=== PATIENT | female | born 1960 | race Caucasian/White ===

== ENCOUNTER 2024-11-06 03:29 | Inpatient (IN) | payer MEDICARE, OTHER, SELFPAY ==
[2024-11-05 23:30] VITALS: BP 162/81
[2024-11-06] VITALS (20 sets, daily range): BP systolic 122–173; BP diastolic 60–96; BMI 17.5; BMI 18.5
--- NOTE | 2024-11-06 00:17 | EDRN ---
Pt with intermittent epigastric abdominal pain x 9 months. Pt notes it happens most often after she eats, does not associate it with certain types of foods stating she eats a mild diet because she has IBS. Pt says she gets the pain, goes to an ER
to get pain medication and that nothing is ever found. Pt was at [facility] Friday night, had a CT and was given an enema. Pt had BM in ED. Pt given laxative to take on Friday and then had another BM on Friday. Pt feels bloated. Last vomited
Friday. Pt with chills. No cp, sob, fever/cough, urinary symptoms, diarrhea. P ain sometimes goes into her back.
[2024-11-06 00:30] LABS: % Basophils 0.4 % (0-2); % Immature Granulocytes 0.4 % (0-0.5); % Lymphocytes 24.2 % (20.5-51.1); % Monocytes 10.3 % (1.7-9.3); % Neutrophils 63.7 % (42.2-75.2); Absolute Eosinophils 0.1 10^3/uL (0-0.7); Absolute Lymphocytes 1.9 10^3/uL (1.2-3.4); Absolute Monocytes 0.8 10^3/uL (0.1-0.6); Absolute Neutrophils 5.1 10^3/uL (1.4-6.5); Hematocrit 39.4 % (37.0-47.0); Hemoglobin 13.7 g/dL (12.0-16.0); Mean Corp Hgb Conc. 34.8 g/dL (33.0-37.0); Mean Corpuscular Hgb 30.2 pg (27.0-31.0); Mean Platelet Volume 9.7 fL (7.4-10.4); Nucleated Red Blood Cells % 0 %; Platelet Count 190 10^3/uL (130-400); Red Blood Cell Count 4.53 10^6/uL (4.20-5.40)
[2024-11-06 00:42] LABS: ALT (SGPT) 327 U/L (0-35); AST (SGOT) 504 U/L (14-36); Alkaline Phosphatase 68 U/L (38-126); Blood Urea Nitrogen 17 mg/dl (7-17); Calcium 9.5 mg/dl (8.4-10.2); Carbon Dioxide 26 mmol/L (22-30); Chloride 100 mmol/L (98-107); Glucose 118 mg/dl (70-99); Lipase 180 U/L (23-300); Potassium 3.8 mmol/L (3.5-5.1); Sodium 135 mmol/L (135-145); Total Bilirubin 1.2 mg/dl (0.2-1.3); Total Protein 6.6 g/dl (6.3-8.2); eGFR > 60.00
--- NOTE | 2024-11-06 01:18 | ED.GENMED ---
History of Present Illness
General
Chief Complaint: Abdominal Pain
Source: patient
Exam Limitations: none
Time Seen by Provider: 11/05/24 23:57
Nursing documentation reviewed up to this point in time: agreed with
History of Present Illness
History of Present Illness:
64-year-old female with history of IBS and GERD presents to the ER for evaluation of abdominal pain. Patient reports that she has had intermittent abdominal pain for months but over the past week symptoms have been more consistent. She reports a
constant epigastric aching radiates towards the right side. She says her pain becomes much more severe with meals. She reports associated nausea and vomiting. She denies any diarrhea; she has chronic constipation. She denies any urinary
symptoms. Denies fevers or chills. She says she was seen a few days ago at an outside hospital and had CT scan which was nondiagnostic and was ultimately discharged. She had prior surgery for bladder mesh but no other prior abdominal surgeries.
Review of Systems
Review of Systems
All Other Systems: ROS reviewed and negative except as documented in HPI and ROS
Constitutional: Denies fever or chills
Respiratory: Denies trouble breathing
Cardiac: Denies chest pain
ABD/GI: Reports abdominal pain, nausea, vomiting and constipated; Denies diarrhea
: Denies dysuria, frequency or flank pain
Musculoskeletal: Denies neck pain or back pain
Neurological: Denies dizzy or headache
Phy Exam
Physical Exam
Physical Exam:
General: Awake, alert, oriented x3; no acute distress
Head: Normocephalic, atraumatic
Eyes: Conjunctiva normal, sclera anicteric
Throat: Airway intact, handling secretions
Neck: Trachea midline
Lungs: Clear to auscultation bilaterally, no wheezing, rales, rhonchi
Heart: Regular rate and rhythm, no murmurs, gallops, or rubs
Abd: Soft, non distended, mildly tender right upper quadrant
Back: No CVA tenderness
Neuro: No gross deficits
Skin: no rash in area of concern
Extremities: No edema in extremities, equal pulses in all extremities
Scores
Heart Failure Risk
Heart Failure Risk Score: Not Applicable
Heart Score for Chest Pain Patients
STEMI patient?: Not applicable
Withdrawal Assessment of Alcohol
Withdrawal Assessment Completed?: Not applicable
Course
Orders/Labs/Results
Orders:
Orders
11/05/24 23:41
Electrocardiogram (*1) Urgent
Reason for Study: Abdominal Pain
EKG- Treatment ONCE
IV Insert/Care/Rem.- Treatment PRN
Complete Blood Count/With Diff Urgent
Comprehensive Metabolic Panel Urgent
Lipase Urgent
Urinalysis Reflex To Culture Urgent
Date Specimen was Collected: 11/05/24
Time Specimen was Collected: 23:41
11/06/24 00:04
US Abdomen Complete/Upper Urgent
Comment:
Reason For Exam: right sided abd pain, N/V
Abnormal Lab Results
11/06/24
00:13
Absolute Monos (auto) 0.8 H 10^3/uL
(0.1-0.6)
Monocytes % 10.3 H %
(1.7-9.3)
Glucose 118 H mg/dl
(70-99)
AST 504 H* U/L
(14-36)
ALT 327 H U/L
(0-35)
11/06/24 00:13
11/06/24 00:13
Vital Signs
Initial and Last Documented VS:
Initial Vital Signs
Temp Pulse Resp BP Pulse Ox
36.8 C 70 20 162/81 98
11/05/24 23:30 11/05/24 23:30 11/05/24 23:30 11/05/24 23:30 11/05/24 23:30
Last Documented Vital Signs
Temp Pulse Resp BP Pulse Ox
36.8 C 70 20 162/81 98
11/05/24 23:30 11/05/24 23:30 11/05/24 23:30 11/05/24 23:30 11/05/24 23:30
MDM/Problems Addressed
Differential Diagnosis Includes:
Cholelithiasis/choledocholithiasis/cholecystitis, enteritis, GERD/gastritis, PUD, appendicitis less likely
MDM/Problems Addressed:
64-year-old female presents for evaluation of abdominal pain worse after meals associated with nausea and vomiting. Intermittent for months but more consistent over the past week. Reportedly nondiagnostic CT scan a few days ago at outside
hospital�unfortunately report is not available for review. Hypertensive otherwise normal vitals. Physical exam as above. Will place an IV check labs including a CBC and a CMP, lipase. Check urinalysis. Check upper abdominal ultrasound.
Reassess after the above.
Labs reviewed: CBC shows no leukocytosis or any other clinically significant abnormalities. Her CMP shows transaminitis with AST and ALT 504/327. T. bili normal. Lipase normal. Upper abdominal ultrasound shows multiple mobile gallstones and
dilated CBD but no signs of cholecystitis. Suspect choledocholithiasis. She has nothing to suggest cholecystitis or cholangitis at this point�no fever, no leukocytosis. Hold on antibiotics. Will admit for continued management. Discussed with
hospitalist.
*Radiology
Radiology exam reviewed: radiology read reviewed
*Pulse Oximetry
Patient hypoxic: no
*Critical Care Note
Total Time (30-74mins, 75-104mins- exclusive of procedures): Not Applicable
Data Reviewed
Source: patient and family (Daughter)
Patient Management
Discussion with other providers: Hospitalist (Discussed with hospitalist)
Escalation/DeEscalation of care consider admission/obs:
Admission indicated
ED Attending Note
-
Portions of this chart may have been created with voice recognition software.� Occasional wrong word or��sound alike� substitutions may have occurred due to the inherent limitations of voice recognition software.
Discharge Plan
Departure
Patient Disposition: Admit
Date of Disposition: 11/06/24
Time of Disposition: 01:17
Admit to doctor: Kaushal
Presentation/result/management discussed w/ accepting MD/DO: Hospitalist
Discharge Problem:
Choledocholithiasis
Prescriptions:
No Action
trazodone 100 mg Tablet
100 mg PO DAILY
duloxetine [Cymbalta] 60 mg Capsule,Delayed Release(Dr/Ec)
60 mg PO DAILY
Referrals:
UNKNOWN - PT DOES,NOT KNOW [Family Provider] -
Interventions
Interventions:
*Risk Screen - Suicide Last Done: 11/05/24 23:30
*General Assessment Last Done: 11/05/24 23:30
*Neglect/Abuse Screening Last Done: 11/05/24 23:30
*ED- Fall Risk Assessment Last Done: 11/05/24 23:30
*ED COVID-19 Vaccine History Last Done: 11/05/24 23:30
LL-Kbsits-Cfysrltajr Assessment Last Done: 11/06/24 00:15
Discharge Date and Time
Print Language: URUGUAYAN
[2024-11-06 01:43] LABS: Urine Albumin Negative (Neg - Trace); Urine Bilirubin Negative (Negative); Urine Character Clear (Clear); Urine Color Yellow; Urine Glucose Negative (Negative); Urine Ketone Negative (Negative); Urine Leukocyte Negative (Negative); Urine Nitrite Negative (Negative); Urine Occult Blood 1+ (Negative); Urine Urobilinogen Negative (Neg - 1+)
[2024-11-06 02:16] LABS: Urine Bacteria Few (Negative); Urine White Cell 0-2 /HPF (0-5)
--- NOTE | 2024-11-06 03:05 | HPS.HSE ---
Family Physician
-
Family Physician: NOT KNOW UNKNOWN - PT DOES
Chief Complaint
-
Abd pain
History of Present Illness
Patient is a 64y F with PMH significant for IBS and anxiety who presents to ED complaining of abdominal pain. Patient reports intermittent symptoms of abdominal pain and N/V that started about 8 months ago. She has had multiple episodes since
that time - typically occurring after evening meals. She had an episode Friday and presented to an outside ED where LFTs were abnormal and CT imaging was unremarkable. She had similar symptoms again this evening and presented to the ED here.
Medical History
Past Medical History
Past Medical History: Reports Other
Additional Past Medical History:
IBS-C
Anxiety / Depression
Osteoporosis
Past Surgical History: Reports Other
Additional Past Surgical History:
R Wrist Surgery
T&A
Bladder Sling
Social History
Tobacco: Former Smoker (Quit smoking 10 years ago.)
Alcohol: None
Drug: None
Family History
Family History: Other (Mother: GB disease, IBS Father: CAD)
Allergies / Home Medications
Allergies reflects when Allergies were last updated in [facility].
Home Medications with original date entered in [facility]
Allergy/Medication List:
Allergies
Allergy/AdvReac Type Severity Reaction Status Date / Time
Penicillins Allergy Hives Verified 11/05/24 23:39
Home Medications
duloxetine 60 mg capsule,delayed release (Cymbalta) 60 mg PO DAILY 11/05/24
trazodone 100 mg tablet 100 mg PO DAILY 11/05/24
Review of Systems
-
History Source: Patient
A 12 point ROS was completed and negative except as noted: Yes
Constitutional: Denies Fever or Chills
EENT: Denies Sore Throat
Respiratory: Denies Cough or Trouble Breathing
Cardiac: Denies Chest Pain or Palpitations
Abdomen/GI: Reports Abdominal Pain, Nausea, Vomiting and Constipated (chronic); Denies Diarrhea or Bloody Stools
: Denies Dysuria or Frequency
Musculoskeletal: Denies Joint Pain or Edema
Neurological: Denies Dizzy or Headache
Psych: Denies Depression or Anxiety
Physical Exam
Vital Signs
Vital Signs
Temp Pulse Resp BP Pulse Ox
98.2 F 58 18 155/88 98
11/05/24 23:30 11/06/24 02:00 11/06/24 02:00 11/06/24 02:00 11/05/24 23:30
Physical Exam
General: Other (64y F in no acute distress.)
HEENT: Moist mucous membranes and PERRLA
Respiratory: Clear; No Wheezes, Rales or Rhonchi
Cardiac: S1/S2, Regular Rhythm and Murmur (diastolic murmur.)
GI: Soft, Non Distended, Normal Bowel Sounds and Other (RUQ tendernes without rebound / guarding.)
Musculoskeletal: No Clubbing, No Cyanosis and No Edema
Neuro: AO x 3
Laboratory Results
-
11/06/24 00:13
11/06/24 00:13
Laboratory Results
Total Bilirubin 1.2 mg/dl (0.2-1.3) 11/06/24 00:13
AST 504 U/L (14-36) H* 11/06/24 00:13
ALT 327 U/L (0-35) H 11/06/24 00:13
Alkaline Phosphatase 68 U/L (38-126) 11/06/24 00:13
Lipase 180 U/L (23-300) 11/06/24 00:13
Impression/Plan
-
A/P: Patient is a 64y F with PMH significant for IBS who presents to ED complaining of abdominal pain and N/V.
Symptomatic Cholelithiasis
Mildly Dilated CBD
- Admit for further evaluation and treatment.
- Symptoms / history sound c/w biliary colic with postprandial pain and N/V.
- Stones appreciated on US.
- LFTs with abnormal AST / ALT - but unremarkable bili and alk phos.
- GI and Surgery evaluations for additional recommendations.
- Supportive care, pain control, antiemetics for now.
Anxiety / Depression
- Stable. Continue home medications.
DVT Prophylaxis: SCDs
Code Status: Full
[2024-11-06] MEDS: TORADOL 10 MG IV ×2 (03:23→09:45)
[2024-11-06] MEDS: LR 1000 IV ×2 (05:06→22:54)
[2024-11-06] MEDS: TYLENOL 650 MG PO (05:06)
[2024-11-06 08:20] LABS: Hematocrit 37.7 % (37.0-47.0); Hemoglobin 13.2 g/dL (12.0-16.0); Mean Corpuscular Hgb 30.3 pg (27.0-31.0); Mean Corpuscular Volume 86.7 fL (81.0-99.0); Mean Platelet Volume 10.1 fL (7.4-10.4); Platelet Count 195 10^3/uL (130-400); Red Blood Cell Count 4.35 10^6/uL (4.20-5.40); Red Cell Dist. Width 11.9 % (11.5-14.5); White Blood Cell Count 5.8 10^3/uL (4.8-10.8)
--- NOTE | 2024-11-06 08:39 | W.PN.HOSP.TC ---
Addendum entered and electronically signed by Kahlil Palma MD 11/06/24 15:36:
Seen and examined by me independently in collaboration with the medical claims manager.
Lab data and imaging data reviewed.
Addendum as below :
Patient presents with 8 months of GI symptoms. She has history of IBS. She had recurrent admissions to the hospital with GI complaints. This time she presented with abdominal pain. She does have right upper quadrant tenderness. Evaluation so
far reveals gallstones but no cholecystitis based on ultrasound but she is tender in the right upper quadrant. There is also CBD dilatation without cholestasis. There is a transaminitis which apparently was noted in the recent blood work per
patient. Urine without any bilirubin.
Reviewed by surgery who plans to take her to the OR today for lap cholecystectomy. There is also plan for intraoperative cholangiogram and if it does not show obstruction or stone and if transaminitis does not improve would need an MRI of the
abdomen and evaluation for hepatocellular disease.
Discussed case with surgery as well as GI.
Total time spent on today's encounter was 52 minutes which included time spent in counseling the patient/family regarding diagnosis and treatment plan as listed above, goals of care, and symptom management. Case was discussed with nursing staff,
specialists, and care coordinators/case management. All labs and imaging personally reviewed by me. Remainder the time spent in detailed review of previous records, lab data, imaging, and other medical provider documentation.
Original Note:
Today's Communication/Plan
-
Plan for cholecystectomy with IOC today
GI and surgery on board
Assessment / Plan
Assessment / Plan
64 y/o female with pmhx significant for IBS-C and anxiety presenting to the ED with chronic colicky abdominal pain and nausea/vomiting
# Cholelithiasis and CBD dilation
- Abd US showing cholelithiasis, with numerous small mobile gallstones, no sonographic evidence of acute cholecystitis, common bile duct demonstrates mild dilatation 8.2 mm, tapering distally.
- LFTs elevated, T Bili and Alk Phos normal, urine urobilinogen neg - no cholestatic pattern. WBC normal. No fever detected.
- Patient notes history of elevated LFTs last year
- History consistent with biliary colic. Pain worse after meals
- GI and surgery on board, plan for cholecystectomy with IOC
- Remains NPO, on LR 80 ml/hr
- If LFTs remain elevated post surgery, will need an MRCP to evaluate further
- Pain management, current pain 11/13, epigastric
- Continue Protonix
# Ureteral dilation, possible
- Incidental finding on abd US, extrarenal pelvis/mildly dilated ureter on the left side
- Not symptomatic, no history of nephrolithiasis
- U/A: RBC 7-10, OB +
- Outpt f/u
# IBS-C
- Continued outpatient follow-up with her established GI doctor, Dr. Christine Valle
- Last cologuard neg (~10 yrs ago)
- Last BM 11/03
# Anxiety
- Continue home meds
DVT prophylaxis SCDs
Full code
Anticipated Discharge: 24 - 48 hours
Subjective/Interval History
-
Date of Service: November 06, 2024
Objective Data
-
Labs:
Laboratory Results
11/06/24 11/06/24
00:13 05:56
WBC 8.0 5.8
Hgb 13.7 13.2
Hct 39.4 37.7
Plt Count 190 195
Sodium 135 Pending
Potassium 3.8 Pending
Chloride 100 Pending
Carbon Dioxide 26 Pending
BUN 17 Pending
Creatinine 0.8 Pending
Glucose 118 H Pending
Calcium 9.5 Pending
Total Bilirubin 1.2 Pending
AST 504 H* Pending
ALT 327 H Pending
Alkaline Phosphatase 68 Pending
Vital Signs:
Vital Signs
Temp Pulse Resp BP Pulse Ox
98.3 F 58 18 144/75 99
11/06/24 07:35 11/06/24 07:35 11/06/24 07:35 11/06/24 07:35 11/06/24 07:35
Review of Systems
-
History Source: Patient
Constitutional: Reports Chills
EENT: Reports No Symptoms Reported
Respiratory: Reports No Symptoms
Cardiac: Reports No Symptoms
Abdomen/GI: Reports Abdominal Pain, Nausea, Vomiting and Constipated; Denies GERD
Genitourinary: Reports No Symptoms
Musculoskeletal: Reports No Symptoms
Skin: Reports No Symptoms
Neuro: Reports No Symptoms
Endocrine: Reports No Symptoms
Hematologic / Lymphatic: Reports No Symptoms
Allergy / Immunology: Reports No Symptoms
Physical Exam
-
General: Well Developed, Well Nourished, No Apparent Distress, Comfortable and Conversant
HEENT: Normocephalic
Respiratory: Clear to Auscultation
Cardiac: Regular Rhythm and S1/S2
GI: Soft, Nondistended, Normal Bowel Sounds and Tender (Epigastric tenderness without rebound/guarding)
Genito-urinary: No Costovertebral Tender
Musculoskeletal: No Clubbing, No Cyanosis and No Edema
Skin: Warm
Neuro: Awake, Alert, Oriented and AO x 3
Psych: Calm
[2024-11-06 08:59] LABS: ALT (SGPT) 316 U/L (0-35); AST (SGOT) 324 U/L (14-36); Albumin 3.8 g/dl (3.5-5.0); Alkaline Phosphatase 64 U/L (38-126); Blood Urea Nitrogen 14 mg/dl (7-17); Calcium 9.1 mg/dl (8.4-10.2); Carbon Dioxide 27 mmol/L (22-30); Chloride 101 mmol/L (98-107); Direct Bilirubin 0.2 mg/dl (0.0-0.4); Estimated Creatinine Clearance 52 ml/min; Glucose 90 mg/dl (70-99); Potassium 3.7 mmol/L (3.5-5.1); Sodium 136 mmol/L (135-145); Total Bilirubin 1.1 mg/dl (0.2-1.3); Total Protein 6.3 g/dl (6.3-8.2); eGFR > 60.00
--- NOTE | 2024-11-06 09:04 | CON.GI ---
Addendum entered and electronically signed by Marry Hobson DO 11/06/24 18:27:
patient's IOC was negative for filling defects so ERCP needed.
GI will sign off, please call with any questions.
Addendum entered and electronically signed by Marry Hobson DO 11/06/24 14:50:
Patient seen examined independently of the physicians baking assistant. I agree with her note with additions below
Beth is a 64-year-old female followed by [facility] for her IBS constipation with Dr. Valle, anxiety and osteoporosis who comes in with intermittent biliary colic with epigastric abdominal pain without radiation that occurs after dinner that
prevents her from sleeping with multiple episodes of ER visits. Along with the pain she does have nausea and vomiting. Ultrasound shows multiple gallstones with a mildly dilated common bile duct 8.2 mm. On exam she is tender in the epigastric
area. Liver enzymes show a total bilirubin of 1.2, AST of 504, ALT of 327, alkaline phosphatase of 68 with no evidence of pancreatitis with a normal lipase. No leukocytosis. Patient is not on a PPI and has never had an upper endoscopy
Due to her biliary colic general surgery is planning for a cholecystectomy and will do an IOC at that time. They will let us know if the IOC is positive requiring an ERCP
Original Note:
Consultation
-
Date/Time Consultation Requested: 11/06/24441
Date/Time Consultation Performed: 11/06/24 4529
Requesting Provider: Dr Easley
Performing Provider: Dr Hobson / Shante Champion PA-C
Reason for Consultation: abdominal pain, gallstones
Medical History
Chief Complaint / HPI
Chief Complaint: abdominal pain
History of Present Illness:
Beth is a 64 year old female with a past medical history of IBS-C, anxiety and osteoporosis who presented to the ED with epigastric abdominal pain, which had been going on intermittently for the past 8-9 months. The pain would typically come on in
the evenings after eating, occurring every 6 weeks or so. She states earlier this week she went to the ER at [facility] for similar pain, had workup that included labs (reportedly showed abnormal LFTs) and abdominal CT that was normal and was
discharged. She returned to the ER when the pain returned last night. She c/o associated nausea, vomiting and chills. Vomit appeared brown to her, but she denies coffee grounds emesis or hematemesis. No heartburn, reflux or dysphagia. Patient
afebrile. US of the abdomen demonstrates multiple gallstones with mildly dilated CBD (8.2mm) with no evidence of acute cholecystitis. Labs show LFTs as follows: total bilirubin 1.2, AST 504, ALT 327, alk phos 68. Lipase 180. WBC count 8.0 and Hgb
13.7.
Patient is established with GI, Dr. Christine Valle. She does have significant issues with her chronic constipation, states she has tried multiple agents without improvement, was just started on Amitiza last week but felt nauseous so stopped it. She
had a colonoscopy about 10 years ago, has never had an endoscopy. No family history of any GI malignancies. She notes her mother had gallbladder issues.
Past Medical History
Past Medical History: Other (IBS-C, anxiety, osteoporosis)
Past Surgical History: Other (R wrist, bladder sling)
Social History
Tobacco: Former Smoker
Alcohol: None
Drug: None and Other (denies NSAID use)
Living: Alone
Family History
Family History: Other (no family history of GI cancers)
Allergies / Home Medications
Allergy/AdvReac Type Severity Reaction Status Date / Time
Penicillins Allergy Hives Verified 11/05/24 23:39
�Medication �Instructions �Recorded
duloxetine 60 mg capsule,delayed 60 mg PO DAILY 11/05/24
release (Cymbalta)
trazodone 100 mg tablet 100 mg PO DAILY 11/05/24
Review of Systems
-
History Source: Patient
All other systems: A 12 pt ROS was Negative except as stated above in HPI
Vital Signs
Temp Pulse Resp BP Pulse Ox
98.3 F 58 18 144/75 99
11/06/24 07:35 11/06/24 07:35 11/06/24 07:35 11/06/24 07:35 11/06/24 07:35
Physical Exam
Exam
General: Well Developed, Well Nourished and No Apparent Distress
Respiratory: Clear
Cardiac: Regular Rhythm
GI: Soft, Non Distended, Normal Bowel Sounds and Tender (+mild epigastric tenderness)
Skin: Warm and Dry
Neuro: AO x 3
Psych: Calm
Results
WBC 5.8 10^3/uL (4.8-10.8) 11/06/24 05:56
Hgb 13.2 g/dL (12.0-16.0) 11/06/24 05:56
Hct 37.7 % (37.0-47.0) 11/06/24 05:56
MCV 86.7 fL (81.0-99.0) 11/06/24 05:56
Plt Count 195 10^3/uL (130-400) 11/06/24 05:56
Absolute Neuts (auto) 5.1 10^3/uL (1.4-6.5) 11/06/24 00:13
Sodium 136 mmol/L (135-145) 11/06/24 05:56
Potassium 3.7 mmol/L (3.5-5.1) 11/06/24 05:56
Chloride 101 mmol/L (98-107) 11/06/24 05:56
Carbon Dioxide 27 mmol/L (22-30) 11/06/24 05:56
BUN 14 mg/dl (7-17) 11/06/24 05:56
Creatinine 0.8 mg/dL (0.6-1.0) 11/06/24 05:56
Calcium 9.1 mg/dl (8.4-10.2) 11/06/24 05:56
Total Bilirubin 1.1 mg/dl (0.2-1.3) 11/06/24 05:56
AST 324 U/L (14-36) H 11/06/24 05:56
ALT 316 U/L (0-35) H 11/06/24 05:56
Alkaline Phosphatase 64 U/L (38-126) 11/06/24 05:56
Lipase 180 U/L (23-300) 11/06/24 00:13
Diagnostic Image Results:
US Abdomen: 11/06/24
-Cholelithiasis, with numerous small mobile gallstones. No sonographic evidence of acute cholecystitis.
-Common bile duct demonstrates mild dilatation 8.2 mm, tapering distally. Correlate with liver function tests. If indicated, consider follow-up nonemergent MRCP.
-Left extrarenal pelvis versus slightly distended proximal ureter; left ureteral jet visualized in the urinary bladder. Correlate with any left flank pain.
Prior GI Procedures:
EGD: never
Colonoscopy: 10 years ago per patient
Assessment / Plan
-
64 year old female with IBS-C with an 8-9 month history of intermittent epigastric abdominal pain with nausea/vomiting that occurs post-prandially, with US findings of multiple gallstones and a mildly dilated CBD and labs showing elevated AST, ALT
(504, 327) with normal T bili (1.2). She has had multiple ER visits for the same pain, states she was just at [facility] last week with reportedly normal CT. US did not show acute cholecystitis. Surgery has also been consulted.
IMPRESSION / PLAN:
Abdominal Pain (epigastric), cholelithiasis
- symptoms suggestive of biliary colic
- mildly elevated CBD on US, raising concern for possible choledocholithiais, although LFTs showing normal bilirubin with elevated AST/ALT
- per Surgery, plan for cholecystectomy today with IOC
- if choledocholithiasis appreciated on IOC, proceed to ERCP
- trend LFTs
- Consider MRI/MRCP with further liver workup if LFTs remain elevated
IBS- C
- continued outpatient follow-up with her established GI
We will follow.
-
-
Thank you for consultation and allowing me to participate in the patient's care. Please call the teacher of family and consumer science GI physician during the after hours with any questions or concerns.
[2024-11-06] MEDS: PROTONIX IV 40 MG IV (09:31)
[2024-11-06] MEDS: NSS (PRESERVATIVE FREE) 10 ML IV (09:31)
--- NOTE | 2024-11-06 12:05 | CON.GS ---
Addendum entered and electronically signed by Eduardo Rao MD 11/06/24 14:19:
I saw and examined the patient.
The Campaign Management Senior Manager's note was reviewed and I agree with the note.
Comment: Pt seen and evaluated at bedside. Pain improved. Imaging with gallstones stones and elevated liver enzymes. Prefers to proceed with lap le with cholang today. Advised if ductal stones found she may need to stay for ERCP. Informed
consent obtained. OCTOR
Original Note:
Consultation
-
Date/Time Consultation Performed: 11/06/24 8887
Medical History
-
Chief Complaint: Epigastric pain
History of Present Illness:
Ms Jaimes is a 64 yo female with a H/O IBS-C, SIBO tx previously with rifaximin and prior bladder sling who presents through the ED with recurrent epigastric pain. She normally receives her care at [facility] and follows with GI there and
notes that she has presented through their ED 4 times over the last 9 months with this pain. She has followed with her GI with outpatient abdominal MRI done in work up and reports she was told she had a hepatic cyst on that image. She describes the
pain as severe and usually occurring in the evening after dinner. She does have an element of chronic abdominal discomfort intermittently to the lower abdomen with her IBS-C which resolves with passing a stool. She notes irregular BM's that are
often as much as 10 days apart but denies acholic stools or dark urine. She reports associated nausea and vomiting with chills with this episode. She notes chills but denies fevers. This morning, she notes that the pain and nausea have improved
although there is mild epigastric discomfort and tenderness present.
Past Medical History
Past Medical History: Other (IBS-C, SIBO)
Past Surgical History: Orthopedic (Right wrist), Tonsilectomy and Urological (bladder sling)
Social History
Tobacco: Former Smoker
Alcohol: None
Drug: None
Living: Alone
Family History
Family History: Other (Mother and GM with gallbladder dz)
Allergies / Home Medications
Allergy/AdvReac Type Severity Reaction Status Date / Time
Penicillins Allergy Hives Verified 11/05/24 23:39
�Medication �Instructions �Recorded �Confirmed �Type
duloxetine 60 mg capsule,delayed 60 mg PO DAILY 11/05/24 11/05/24 History
release (Cymbalta)
trazodone 100 mg tablet 100 mg PO DAILY 11/05/24 11/05/24 History
Review of Systems
-
History Source: Patient and Family
All other systems: Negative unless noted
A 10 point review of systems was completed, and was negative except as per HPI.
Physical Exam
Vital Signs
Temp Pulse Resp BP Pulse Ox
98.3 F 58 18 144/75 99
11/06/24 07:35 11/06/24 07:35 11/06/24 07:35 11/06/24 07:35 11/06/24 07:35
11/05/24 11/06/24 11/07/24
06:59 06:59 06:59
Actual Weight 47.446 kg
Body Mass Index (BMI) 18.5
Lab Results
11/06/24 05:56
11/06/24 05:56
WBC 5.8 10^3/uL (4.8-10.8) 11/06/24 05:56
Hgb 13.2 g/dL (12.0-16.0) 11/06/24 05:56
Hct 37.7 % (37.0-47.0) 11/06/24 05:56
Plt Count 195 10^3/uL (130-400) 11/06/24 05:56
Abs Immat Gran (auto) 0.0 10^3/uL (0-0.05) 11/06/24 00:13
Neutrophils % 63.7 % (42.2-75.2) 11/06/24 00:13
Physical Exam
General: Well Developed and Well Nourished
HEENT: Moist Mucous Membranes
Respiratory: Non Labored Respirations
GI: Soft, Non Distended and Tender (mild to epigastrium)
Neuro: Awake, Alert and AO x 3
Psych: Calm
Data Reviewed
-
Ultrasound: Image Personally Visualized and interpreted, Report Reviewed by me, Discussed with Physician (GI PA and Attending Dr Palma), Discussed with Patient and Discussed with Family
Labs: Labs Reviewed by me, Discussed with Physician, Discussed with Patient and Discussed with Family
Assessment / Plan
-
64 yo female with h/o ibs, sibo and bladder sling who presented with severe epigastric pain and n/v through the ED overnight. Symptomatic improvement this am. She reports a recurrent pattern with prior visits to the [facility] ED x4 over the past 9
months for the same. Normal bilirubin with transaminitis (trended down since presentation), no leukocytosis. US with cholelithiasis noted without pericholecystic stranding/wall thickening. Suspect recurrent biliary colic. Afebrile, VSS.
--Continue NPO/IVF while NPO
--Will plan laparoscopic cholecystectomy with intraop cholangiogram today
--Gastroenterology following with us
--ABX suggestion clerk to OR
Case discussed with GI and medicine teams
--- NOTE | 2024-11-06 14:52 | CM ---
Patient seen at bedside with family in [address] [place] [address]. Patient states that she is awaiting update if she can have surgery today. Patient stated that she lives with her son in a mother in law suite. Patient has 1/3 steps to enter. Patient has no DME at
home, patient PCP is Dr. El and she uses the [facility] in [place]. CM will continue to follow for discharge planning needs.
Plan; home with family; pending functional status.
--- NOTE | 2024-11-06 18:18 | W.IMMPOSTOP ---
Surgical Immed Post Op Note
-
Primary Surgeon: Maira
Pre-op Diagnosis: Biliary colic
Post-op Diagnosis: Same
Procedure Performed: Robot assisted laparoscopic cholecystectomy with cholangiogram
Anesthesia Type: GETA
Specimen / Cultures: Gallbladder
Estimated Blood Loss: 5cc
Complications: None immediate
Operative Findings: Soft floppy gallbladder, cholangiogram with good flow into duodenum and opacification of biliary tree without filling defects
--- NOTE | 2024-11-06 18:19 | OR.RPT ---
Operative Report
Operative Report
Primary Surgeon: Maira
Pre-op Diagnosis: Biliary colic
Post-op Diagnosis: Same
Procedure Performed: Robot assisted laparoscopic cholecystectomy with cholangiogram
Anesthesia Type: GETA
Specimen / Cultures: Gallbladder
Estimated Blood Loss: 5cc
Complications: None immediate
Operative Findings: Soft floppy gallbladder with thickened wall and mild posterior fibrosis, cholangiogram with good flow into duodenum and opacification of biliary tree without filling defects
Date of Surgery:� 11/06/24
Indications: This 64F developed right upper quadrant pain. Lab work showed elevated liver enzymes. Imaging showed no ductal dilation. Laparoscopic cholecystectomy with robotic assist and cholangiogram was planned.
Description of procedure: The patient was placed on the operating table in the supine position. General anesthesia was induced. A time-out was completed verifying correct patient, procedure, site, positioning, and special equipment prior to
beginning this procedure. An orogastric tube was placed. The abdomen was prepped and draped in the usual sterile fashion. A stab incision was made in left upper quadrant and the Veress needle was inserted. Proper position was confirmed by aspiration
and saline meniscus test. The abdomen was insufflated with carbon dioxide to a pressure of 12mmHg. The patient tolerated insufflation well.
A 8mm trocar was then inserted above the umbilicus through the existing hernia defect. The laparoscope was inserted and the abdomen inspected. No injuries from initial trocar placement or Veress needle insertion were noted. Additional 8mm trocars
were then inserted in the following locations: two in the right lower quadrant and to the left of the umbilicus and just above. The abdomen was inspected and no abnormalities were found. The table was placed in the reverse Trendelenburg position
with the right side up. The dome of the gallbladder was grasped with an atraumatic grasper and retracted over the dome of the liver. The infundibulum was then grasped with an atraumatic grasper and retracted toward the right lower quadrant. This
maneuver exposed Calot�s triangle. The peritoneum overlying the gallbladder infundibulum was then incised and the cystic duct and cystic artery identified and circumferentially dissected so that a clear view of the liver was achieved through a
window between the cystic duct an cystic artery. At this time, the only two structures going into the gallbladder were the cystic artery and cystic duct.
A raymond was made in the abdominal wall and the cystic duct. A cholangiogram catheter was threaded through the abdominal wall and into the cystic duct and secured with a 2-0 silk tie. Cholangiogram was obtained showing good flow into duodenum and
opacification of the biliary tree without filling defects. The catheter was withdrawn.
The cystic duct was then doubly clipped and divided. The cystic artery was controlled with bipolar and divided. The gallbladder was then dissected from its peritoneal attachments by electrocautery. The posterior plane was mildly fibrotic. The
gallbladder was removed using an endoscopic retrieval bag placed through the umbilical port. The gallbladder was passed off the table as a specimen. The gallbladder fossa was closely inspected. There was no evidence of bleeding from the gallbladder
fossa or cystic artery or leakage of the bile from the cystic duct stump. The umbilical trocar site was closed at the fascial level with 2-0 PDS. Secondary trocars were removed under direct vision and noted to be hemostatic. The abdomen was allowed
to collapse. The skin was closed with subcuticular sutures of 4-0 monocryl and topical skin adhesive. The orogastric tube was removed.
The patient tolerated the procedure well and was taken to the postanesthesia care unit in stable condition.
[2024-11-06] MEDS: SUBLIMAZE 25 MCG IV (19:14)
[2024-11-06] MEDS: CYMBALTA DELAYED RELEASE 60 MG PO (20:39)
[2024-11-06] MEDS: ULTRAM 100 MG PO (21:09)
[2024-11-06] MEDS: DESYREL 100 MG PO (22:55)
--- NOTE | 2024-11-06 23:43 | TRANSFER ---
Received pt from NURSE TECH Maureen @1929 - pt s/p stacy lap assisted le. Pt w 4 lap sites and 2 port sites glued, VERNON. c/o of some discomfort but did not want pain meds at time of assessment. Pt slightly drowsy but was able to make all needs known. VS
WNL. Call zamora within reach, bed in lowest position. Assessment ongoing.
[2024-11-07 03:02] VITALS: BP 122/63
[2024-11-07 06:12] LABS: % Basophils 0.1 % (0-2); % Immature Granulocytes 0.3 % (0-0.5); % Lymphocytes 10.1 % (20.5-51.1); % Monocytes 5.9 % (1.7-9.3); % Neutrophils 83.6 % (42.2-75.2); Absolute Lymphocytes 0.7 10^3/uL (1.2-3.4); Absolute Monocytes 0.4 10^3/uL (0.1-0.6); Absolute Neutrophils 5.9 10^3/uL (1.4-6.5); Hematocrit 36.4 % (37.0-47.0); Hemoglobin 12.8 g/dL (12.0-16.0); Mean Corp Hgb Conc. 35.2 g/dL (33.0-37.0); Mean Corpuscular Hgb 30.6 pg (27.0-31.0); Mean Corpuscular Volume 87.1 fL (81.0-99.0); Nucleated Red Blood Cells % 0 %; Platelet Count 183 10^3/uL (130-400); Red Blood Cell Count 4.18 10^6/uL (4.20-5.40); Red Cell Dist. Width 12.4 % (11.5-14.5); White Blood Cell Count 7.1 10^3/uL (4.8-10.8)
[2024-11-07 06:50] LABS: ALT (SGPT) 216 U/L (0-35); AST (SGOT) 93 U/L (14-36); Alkaline Phosphatase 55 U/L (38-126); Blood Urea Nitrogen 12 mg/dl (7-17); Calcium 8.6 mg/dl (8.4-10.2); Carbon Dioxide 24 mmol/L (22-30); Chloride 107 mmol/L (98-107); Estimated Creatinine Clearance 46 ml/min; Glucose 113 mg/dl (70-99); Potassium 4.6 mmol/L (3.5-5.1); Sodium 140 mmol/L (135-145); Total Bilirubin 0.8 mg/dl (0.2-1.3); Total Protein 6.1 g/dl (6.3-8.2); eGFR > 60.00
[2024-11-07 07:00] VITALS: BP 123/68
[2024-11-07] MEDS: ULTRAM 50 MG PO (07:32)
--- NOTE | 2024-11-07 07:33 | W.PN.HOSP.TC ---
Addendum entered and electronically signed by Kahlil Palma MD 11/07/24 11:27:
Seen and examined by me independently in collaboration with the medical grade shoemaker.
Lab data and imaging data reviewed.
Addendum as below :
Status post the lap cholecystectomy and negative cholangiogram. Denies much of pain postoperatively. Abdomen soft. Tolerating diet. Cleared by surgery for discharge.
AST ALT improving. Patient advised to repeat LFTs in a week and if normalized no further workup but if still elevated needs a GI eval. Advised to follow with PCP.
More than 30 minutes spent in discharge including
Final examination of the patient
Summarizing hospital stay
Instructions for continuing care to all relevant caregivers
Preparation of discharge records, prescriptions, and referral forms
Total time spent (in minutes): 32
Original Note:
Today's Communication/Plan
-
Medically stable for discharge today
Outpatient follow-up of surgery and urology
Assessment / Plan
Assessment / Plan
64 y/o female with pmhx significant for IBS-C and anxiety presenting to the ED with chronic colicky abdominal pain and nausea/vomiting
# Cholelithiasis and CBD dilation
- Abd US showing cholelithiasis, with numerous small mobile gallstones, no sonographic evidence of acute cholecystitis, common bile duct demonstrates mild dilatation 8.2 mm, tapering distally.
- LFTs elevated, T Bili and Alk Phos normal, urine urobilinogen neg - no cholestatic pattern. WBC normal. No fever detected.
- Patient notes history of elevated LFTs last year
- History consistent with biliary colic. Pain worse after meals
- GI and surgery on board, plan for cholecystectomy with IOC
- Remains NPO, on LR 80 ml/hr
- If LFTs remain elevated post surgery, will need an MRCP to evaluate further
- Pain management
- Status post robot-assisted laparoscopic cholecystectomy with intraoperative cholangiogram --> no filling defect reported in CBD
- LFTs downtrending post cholecystectomy
- Patient tolerating regular diet, no nausea/vomiting
- No bowel movements yet but passed gas
- Cleared for discharge by surgery, will need outpatient follow-up in 2 to 4 weeks
# Ureteral dilation, possible
- Incidental finding on abd US, extrarenal pelvis/mildly dilated ureter on the left side
- Not symptomatic, no history of nephrolithiasis
- U/A: RBC 7-10, OB +
- Outpt f/u with urology
# IBS-C
- Continued outpatient follow-up with her established GI doctor, Dr. Christine Valle
- Last cologuard neg (~10 yrs ago)
- Last BM 11/03
# Anxiety
- Continue home meds
DVT prophylaxis SCDs
Full code
Anticipated Discharge: Today
Subjective/Interval History
-
Date of Service: November 07, 2024
Objective Data
-
Labs:
Laboratory Results
11/07/24
04:05
WBC 7.1
Hgb 12.8
Hct 36.4 L
Plt Count 183
Sodium 140
Potassium 4.6
Chloride 107
Carbon Dioxide 24
BUN 12
Creatinine 0.9
Glucose 113 H
Calcium 8.6
Total Bilirubin 0.8
AST 93 H
ALT 216 H
Alkaline Phosphatase 55
Vital Signs:
Vital Signs
Temp Pulse Resp BP Pulse Ox
98.0 F 54 16 122/63 99
11/07/24 03:02 11/07/24 03:02 11/07/24 03:02 11/07/24 03:02 11/07/24 03:02
I&O
11/06/24 11/07/24 11/08/24
06:59 06:59 06:59
Intake Total 1260 / 1260
Balance 1260 / 1260
Review of Systems
-
History Source: Patient
Constitutional: Reports No Symptoms
EENT: Reports No Symptoms Reported
Respiratory: Reports No Symptoms
Cardiac: Reports No Symptoms
Abdomen/GI: Reports Abdominal Pain; Denies Nausea or Vomiting
Breast: Reports No Symptoms
Genitourinary: Reports No Symptoms
Musculoskeletal: Reports No Symptoms
Skin: Reports No Symptoms
Neuro: Reports No Symptoms
Endocrine: Reports No Symptoms
Hematologic / Lymphatic: Reports No Symptoms
Physical Exam
-
General: Well Developed, Well Nourished, No Apparent Distress and Comfortable
HEENT: Normocephalic
Respiratory: Clear to Auscultation
Cardiac: Regular Rhythm and S1/S2
GI: Soft, Nondistended, Normal Bowel Sounds, Tender (Tender near the incisions, no guarding or rebound) and Other (Bruising around midline incision)
Genito-urinary: No Costovertebral Tender
Musculoskeletal: No Clubbing, No Cyanosis and No Edema
Skin: Warm
Neuro: Awake, Alert, Oriented and AO x 3
Psych: Calm
[2024-11-07] MEDS: PROTONIX IV 40 MG IV (07:38)
[2024-11-07] MEDS: NSS (PRESERVATIVE FREE) 10 ML IV (07:38)
--- NOTE | 2024-11-07 10:09 | W.PN.GS2 ---
Addendum entered and electronically signed by Eduardo Rao MD 11/07/24 10:40:
I saw and examined the patient.
The Changer Fixer's note was reviewed and I agree with the note.
Comment: Looks well, feels well, rogelio PO, ambulating, LFTs trending down. Exam approp. OK for DC
Original Note:
Today's Communication / Plan
-
okay for d/c from our perspective
follow up as an outpatient with Dr. Rao in a few weeks
Assessment / Plan
-
POD#1 Robot assisted laparoscopic cholecystectomy with cholangiogram
Vitals normal. WBC 7.1. Hgb 9.9 (9.6)
-Tolerating a regular diet
-Out of bed as tolerated
-Urinating without difficulty
-OR pathology pending
-Okay for discharge from our perspective. All discharge instructions discussed with patient including medications, activity levels, and follow up. All questions addressed.
Subjective Data
-
Date of Service: November 07, 2024
Patient states her pain is controlled. She has no complaints. She tolerated breakfast. She denies nausea or vomiting.
Objective Data
-
Intake and Output
11/06/24 11/07/24 11/08/24
06:59 06:59 06:59
Intake Total 1260 / 1260
Balance 1260 / 1260
Intake:
Oral fluids 480 / 480
IV fluids (Total) 780 / 780
Normosol 100 / 100
Other:
Number of approximated SMALL 2
amounts of urine
Number of approximated MODERATE 1 5
amounts of urine
Number of approximated LARGE 1
amounts of urine
Vital Signs
Temp Pulse Resp BP Pulse Ox
98.3 F 116 18 123/68 97
11/07/24 07:00 11/07/24 07:00 11/07/24 07:00 11/07/24 07:00 11/07/24 07:00
Lab Results
11/07/24 04:05
11/07/24 04:05
Calcium 8.6 mg/dl (8.4-10.2) 11/07/24 04:05
Total Bilirubin 0.8 mg/dl (0.2-1.3) 11/07/24 04:05
Direct Bilirubin 0.2 mg/dl (0.0-0.4) 11/06/24 05:56
AST 93 U/L (14-36) H 11/07/24 04:05
ALT 216 U/L (0-35) H 11/07/24 04:05
Alkaline Phosphatase 55 U/L (38-126) 11/07/24 04:05
Total Protein 6.1 g/dl (6.3-8.2) L 11/07/24 04:05
Albumin 4.0 g/dl (3.5-5.0) 11/07/24 04:05
Physical Exam
-
aaox3
abdomen soft, non-tender
incisions c/d/i
--- NOTE | 2024-11-07 11:19 | CM ---
Patient seen at bedside on . Patient states that she is for discharge home today. Patient son to transport. Patient completed IMM and signed form placed on chart. CM will continue to follow for discharge planning needs.
Plan; home with no needs anticipated at this time.
[2024-11-07 11:20] VITALS: BP 125/64
[2024-11-07] MEDS: TYLENOL 650 MG PO (11:48)
--- NOTE | 2024-11-07 17:42 | W.DCSUMMARY ---
Discharge Summary
Discharge Data
Date of Admission: 11/06/24
Date of Discharge: 11/07/24
-
Pending Results: Yes (Hep C Antibody)
Hospital Course
Discharging Physician : Dr. Priscilla Holman, Dr. Kahlil Palma
Disposition : Home
Principal Discharge diagnosis :
Cholelithiasis status post robot-assisted laparoscopic cholecystectomy with negative cholangiogram
Abnormal LFTs
Chronic Discharge diagnosis :
History of IBS-C and SIBO
History of anxiety
Hospital Course :
64 y/o female with past medical history of IBS-C, SIBO, and anxiety presenting with colicky abdominal pain and nausea vomiting x 8 months
# Cholelithiasis
- No evidence of choledocholithiasis/cholangitis
- Abdominal ultrasound showed numerous small mobile gallstones with no evidence of acute cholecystitis, mildly dilated CBD 8.2 mm
- LFTs not consistent with cholestatic pattern, urine urobilinogen negative
- Patient reported 4 visits to the ED during the past 9 months due to colicky abdominal pain. Pain was worse after meals consistent with biliary colic.
- GI and surgery were on board. Patient was made n.p.o., received LR 80 mL/hr,
- Surgery discussed treatment options with patient and daughter. Patient agreed to proceed with surgery. Plan for ERCP if positive IOC.
- Robot-assisted laparoscopic cholecystectomy with intraoperative cholangiogram was performed 11/06/24. There was no CBD filling defect on IOC.
- LFTs downtrended after surgery, patient tolerated regular diet, voiding without difficulty, had gas passage. Patient was cleared for discharge by surgery.
- Advised outpatient follow-up with surgery in 2 to 4 weeks
# Elevated LFTs
- Patient reported history of abnormal LFTs, unclear etiology
- No history of alcohol use
- Hep C antibody pending
# Asymptomatic microscopic hematuria
- UA showed positive occult blood and RBC 7-10
- Abdominal ultrasound: extrarenal pelvis/mildly dilated ureter on the left side
- Advise outpatient follow-up with urology
# IBS-C
- Stable
- Last cologuard neg (~10 yrs ago)
- Advised continued outpatient follow-up with her established GI doctor, Dr. Christine Valle
# Anxiety
- No changes were made to home meds
Important imaging findings :
Abdominal ultrasound (11/06/2024):
Cholelithiasis, with numerous small mobile gallstones. No sonographic evidence of acute cholecystitis.
Common bile duct demonstrates mild dilatation 8.2 mm, tapering distally. Correlate with liver function tests. If indicated, consider follow-up nonemergent MRCP.
Left extrarenal pelvis versus slightly distended proximal ureter; left ureteral jet visualized in the urinary bladder. Correlate with any left flank pain.
Procedure findings :
Robot-assisted laparoscopic cholecystectomy with cholangiogram (11/06/2024):
Soft floppy gallbladder with thickened wall and mild posterior fibrosis, cholangiogram with good flow into duodenum and opacification of biliary tree without filling defects.
Discharge Plan
-
Patient Disposition: Home (Routine Discharge)
Discharge Diagnosis/Procedures: Cholelithiasis status post robot-assisted laparoscopic cholecystectomy with negative cholangiogram, abnormal LFTs, history of IBS-C and SIBO, history of anxiety
Condition: Good
Diet: As tolerated
Activity: No strenuous activity
Additional Activity: do not lift over 20lbs for the next 2-3 weeks
Driving Restrictions: No driving for 24 hours
Bathing Restrictions: OK to Shower
Blood Work: Liver function tests in 1 week -arrange through your PCP and if still elevated obtain GI referral
Wound Care: Allow the glue to flake off your incisions on its own over the next 2-3 weeks. Avoid swimming or soaking in tubs for the next 2 weeks.
Activity Restrictions/Additional Instructions:
Call your surgeon if you have nausea with vomiting, worsening pain or a fever >100.4
Instructions: Cholecystectomy - Discharge instructions
Referrals:
Aric Miller MD [Active] -
Eduardo Rao MD [Active] - in two to four weeks
Additional Discharge Medication Instructions: You should follow-up as outpatient with your surgeon, Dr. Rao. Please call their office to make an appointment in 2-4 weeks.
Your abdomen ultrasound showed a left extrarenal pelvis versus slightly distended proximal ureter. You should follow-up as outpatient with urology.
Prescriptions:
New
acetaminophen 325 mg Tablet
650 mg PO Q6HPRN PRN (Reason: Mild Pain / Temp > 101) Qty: 10 0RF
tramadol 50 mg tablet
50 mg PO Q6H PRN (Reason: moderate Pain) Qty: 20 0RF
Continued
trazodone 100 mg Tablet
100 mg PO DAILY
duloxetine [Cymbalta] 60 mg Capsule,Delayed Release(Dr/Ec)
60 mg PO DAILY
Discharge Orders:
Discharge Patient (As Directed); Ordered 11/07/24
Ordered By: Kahlil Palma
Discharge Date and Time
Discharge Date/Time: 11/07/24 12:16
Print Language: FAROESE
[2024-11-08 18:57] LABS: Hepatitis C Antibody Negative (Negative)
== END 2024-11-07 12:16 | disposition home or self-care (01) | DRG 419 ==
LOC: 2 SOUTH 03:29
PROVIDERS: Emergency Medicine; ADMITTING PHYSICIAN Hospitalist; ATTENDING PHYSICIAN Internal Medicine; CONSULT PHYSICIAN Internal Medicine; CONSULT PHYSICIAN Surgery; EMERGENCY PHYSICIAN Emergency Medicine
PROC: 0FT44ZZ Resection of Gallbladder, Percutaneous Endoscopic Approach (ICD-10-PCS; 2024-11-06)
PROC: BF502Z0 Other Imaging of Bile Ducts using Fluorescing Agent, Intraoperative (ICD-10-PCS; 2024-11-06)
DX: K80.10 Calculus of gallbladder with chronic cholecystitis without obstruction (principal); Z87.891 Personal history of nicotine dependence; K58.1 Irritable bowel syndrome with constipation; F41.9 Anxiety disorder, unspecified; R31.21 Asymptomatic microscopic hematuria; R79.89 Other specified abnormal findings of blood chemistry
CPT/HCPCS: 88304; 74300; 76000; 76700; 80053; 81003; 81015; 82248; 83690; 85025; 85027; 86803; 93005; 99285; A4300